=== PATIENT | male | born 1965 | race Caucasian/White ===

== ENCOUNTER → 2017-12-30 | Outpatient (CLI) | payer OTHER ==
[~2017-12-30] VITALS: Ht 172.7 cm; Wt 117.9 kg
[~2017-12-30] MED LIST: LEXAPRO10 MG PO; MOBIC15 MG PO; NEURONTIN300 MG PO; PEG 3350 ELEC4000 ML PO; TOPROL XL25 MG PO; ULTRAM50 MG PO; ZESTRIL20 MG PO
== END | disposition home or self-care (01) ==
LOC: AMB 10:45
PROC: 0DJD8ZZ Inspection of Lower Intestinal Tract, Via Natural or Artificial Opening Endoscopic (ICD-10-PCS; principal; 2017-12-30)
DX: Z12.11 Encounter for screening for malignant neoplasm of colon (principal); K57.30 Diverticulosis of large intestine without perforation or abscess without bleeding; Z87.891 Personal history of nicotine dependence; Z88.1 Allergy status to other antibiotic agents; Z68.41 Body mass index [BMI] 40.0-44.9, adult

== ENCOUNTER 2018-01-08 22:04 | Inpatient (IN) | payer OTHER ==
[~2018-01-08] VITALS: Ht 172.7 cm; Wt 114.4 kg
[~2018-01-08 22:04] MED LIST changes: +IRON325 M1 PO
[2018-01-09] MEDS ORDERED: MELATONIN5 M3 PO (07:33)
[2018-01-09 07:47] VITALS: BP 113/68
[2018-01-09 14:00] VITALS: BP 100/52
[2018-01-09 16:14] VITALS: BP 97/52
[2018-01-09 20:15] VITALS: BP 125/59
[2018-01-09 23:55] VITALS: BP 124/60
[2018-01-10 04:15] VITALS: BP 111/52
[2018-01-10 05:51] LABS: HEMATOCRIT 30.2 % (38.0-50.0); HEMOGLOBIN 10.1 G/DL (12.5-16.6); MCH 29.2 PG (29.0-34.0); MCHC 33.4 G/DL (30.0-36.0); MCV 87.3 FL (86-99); PLATELET COUNT 219 K/uL (156-360); RBC DIS.WIDTH-SD 41.4 % (39-53); RED BLOOD COUNT 3.46 M/uL (4.00-5.50)
[2018-01-10 07:33] VITALS: BP 102/54
[2018-01-10] MEDS ORDERED: ELIQUIS2.5 MG PO (08:57)
[2018-01-10] MEDS ORDERED: OXYCODONE HCL5 MG PO (08:57)
[2018-01-10 11:57] VITALS: BP 109/59
[2018-01-10 15:40] VITALS: BP 107/53
[2018-01-10 20:18] VITALS: BP 119/55
[2018-01-10 21:25] VITALS: BP 110/53
[2018-01-11 00:20] VITALS: BP 115/56
[2018-01-11 04:10] VITALS: BP 108/58
[2018-01-11 05:41] LABS: HEMATOCRIT 29.7 % (38.0-50.0); HEMOGLOBIN 9.7 G/DL (12.5-16.6); MCHC 32.7 G/DL (30.0-36.0); MCV 88.7 FL (86-99); PLATELET COUNT 214 K/uL (156-360); RBC DIS.WIDTH-CV 13.2 % (11.8-14.6); RED BLOOD COUNT 3.35 M/uL (4.00-5.50); WHITE BLOOD COUNT 9.1 K/uL (4.1-10.2)
[2018-01-11 08:12] VITALS: BP 103/57
[2018-01-11 12:26] VITALS: BP 100/54
[2018-01-11 14:10] VITALS: BP 110/60
== END 2018-01-11 14:25 | disposition home health service (06) | DRG 470 ==
LOC: ENRESERV 22:04 → 2SOUTH 01-09 06:26 → 3WEST 01-09 13:35 → 2SOUTH 01-09 15:20 → 3WEST 01-11 14:25
PROVIDERS: Orthopaedic Surgery; Physician Assistant
PROC: 0SRB04A Replacement of Left Hip Joint with Ceramic on Polyethylene Synthetic Substitute, Uncemented, Open Approach (ICD-10-PCS; principal; 2018-01-09)
DX: M16.12 Unilateral primary osteoarthritis, left hip (principal); Z68.41 Body mass index [BMI] 40.0-44.9, adult; F41.1 Generalized anxiety disorder; I10 Essential (primary) hypertension; E66.01 Morbid (severe) obesity due to excess calories; G47.33 Obstructive sleep apnea (adult) (pediatric); E66.9 Obesity, unspecified; Z90.49 Acquired absence of other specified parts of digestive tract; Z87.891 Personal history of nicotine dependence
CPT/HCPCS: 82948; 85027; 97530 GO; J0131; J0690; J1885; J2250; J7050; J7120; S0020